=== PATIENT | female | born 1940 | race Caucasian/White ===

== ENCOUNTER 2020-12-13 15:37 | Emergency (ER) | payer MEDICARE ==
[~2020-12-13] VITALS: Ht 162.6 cm; Wt 95.3 kg
[2020-12-13] MEDS ORDERED: AMIODARONE HCL400 MG PO (15:49)
[2020-12-13] MEDS ORDERED: FUROSEMIDE 20 M20 MG PO (15:50)
[2020-12-13] MEDS ORDERED: FLORINEF ACETA0.1 MG PO (15:50)
[2020-12-13] MEDS ORDERED: PRADAXA150 MG PO (15:50)
[2020-12-13] MEDS ORDERED: POTASSIUM20 PO (15:51)
[2020-12-13] MEDS ORDERED: RAYOS5 MG PO (15:51)
[2020-12-13] MEDS ORDERED: LEVO-T100 MCG PO (15:51)
[2020-12-13] MEDS ORDERED: PROLIA (15:52)
[2020-12-13] MEDS ORDERED: HYDROCODON-ACE1 EAC7 PO (16:41)
[2020-12-13 17:03] VITALS: BP 150/89
== END 2020-12-13 17:04 | disposition home or self-care (01) ==
LOC: M.ERS 15:37
DX: G89.29 Other chronic pain (principal); M54.5 Low back pain; I10 Essential (primary) hypertension; M06.9 Rheumatoid arthritis, unspecified